=== PATIENT | male | born 1945 | race Caucasian/White ===

== ENCOUNTER 2017-01-07 18:19 | Inpatient (IN) | payer OTHER ==
[~2017-01-07] VITALS: Ht 172.7 cm; Wt 75.7 kg
[2017-01-07 18:29] VITALS: BP 163/80
[2017-01-07 19:02] LABS: HEMOGLOBIN 14.1 g/dL (12.0-18.0); MEAN CORPUSCULAR HEMOGLOBIN 28 pg (27-31); MEAN CORPUSCULAR HGB CONC 33 g/dL (33-37); MEAN CORPUSCULAR VOLUME 87 fL (80-94); PLATELET COUNT (AUTO) 130 K/uL (140-450); RED BLOOD CELL COUNT(AUTO) 4.96 MIL/uL (4.20-6.10); RED CELL DISTRIBUTION WIDTH 13.2 % (11.6-13.7); WHITE BLOOD COUNT (AUTO) 13.6 K/uL (4.8-10.8)
[2017-01-07 19:16] LABS: ANION GAP 13.1 (8-16); CARBON DIOXIDE 24.2 mmol/L (21-32); CHLORIDE 104 mmol/L (98-107); GLUCOSE 138 mg/dL (74-106); POTASSIUM 3.3 mmol/L (3.5-5.1); SODIUM SERUM 138 mmol/L (136-145); UREA NITROGEN, BLOOD 20 mg/dL (7-18)
--- NOTE | 2017-01-07 19:17 | NUR ---
CRUZ CATHETER PLACED, MAINTAINED ASEPTIC TECHNIQUE---PT TOLERATED WELL WITHOUT INCRESE OF DISCOMFORT---PT STATED RELIEF OF PAIN IMMEDIATELY AFTER CRUZ INSERT
--- NOTE | 2017-01-07 19:18 | NUR ---
71 Y/O M W/C/O LUMP TO TO OF R TESTICLE X 3 MTHS, AND PT URINARY RETECTION X TODAY. CRUZ CATH PLCED BY SUDARSHAN RN PER ER MD VERBAL ORDER. HEMATURIA NOTED, 500 ML URINE OUT, BRIGH RED. PT STATES HIS PAIN DISPARIED AFTER URINE WAS RELEASED. DENIES ANY PAIN PRESENT AT THE MOMENT, OR FEVER, OR CHILLS. ER MD MADE AWARE.
[2017-01-07 19:21] LABS: ALANINE AMINOTRANSFERASE 22 U/L (16-63); ALKALINE PHOSPHATASE 85 U/L (46-116); ASPARTATE AMINOTRANSFERASE 24 U/L (15-37); LIPASE 67 U/L (73-393); TOTAL BILIRUBIN 0.6 mg/dL (0.0-1.0); TOTAL PROTEIN, SERUM 7.9 g/dL (6.4-8.2)
[2017-01-07 19:29] LABS: BAND % (MANUAL) 21 % (0-8); NEUTROPHILS % (MANUAL) 76 (43-65)
[2017-01-07 19:30] LABS: LYMPHOCYTES % (MANUAL) 2 % (20-46); MONOCYTES % (MANUAL) 1 % (5-12); PLATELET ESTIMATE DECREASED
--- NOTE | 2017-01-07 20:20 | NUR ---
PT RESTING IN BED, ON OUTSIDE SALES ACCOUNT EXECUTIVE, VSS. NO S/S OF DISTRESS NOTED AT THE MOMENT.
[2017-01-07] MEDS ORDERED: LEVOFLOXACIN 500 MG/D5W PREMIX 100 ML IV ONE (20:25)
[2017-01-07] MEDS ORDERED: NACL 0.9% 1,000 ML IV ONE (20:25)
[2017-01-07 20:30] LABS: APPEARANCE,URINE CLOUDY (CLEAR); BILIRUBIN,URINE NEGATIVE (NEGATIVE); BLOOD, URINE 3+ (NEGATIVE); COLOR,URINE RED (YELLOW); LEUKOCYTE ESTERASE ,URINE 2+ (NEGATIVE); NITRITE, URINE POSITIVE (NEGATIVE); PROTEIN,URINE 2+ (NEGATIVE); UGLUCOSE NEGATIVE (NEGATIVE); UROBILINOGEN,URINE 0.2 EU/dL (0.2 - 1)
[2017-01-07 20:33] LABS: RBC,URINE TOO NUMEROUS TO COUN /HPF (0-5)
[2017-01-07 20:34] LABS: BACTERIA,URINE 2+ /HPF (None Seen); SQUAMOUS EPITHELIAL CELL,UR 0-3 (FEW) /LPF (0-3 (FEW))
--- NOTE | 2017-01-07 20:36 | NUR ---
X-Ray at bedside.
[2017-01-07 21:03] LABS: LACTIC ACID 1.4 mmol/L (0.4-2.0)
--- NOTE | 2017-01-07 21:06 | NUR ---
Patient will be admitted to care of DR FUENTES. Admited to TELEMETRY. Will go to room 110 A. Belongings list completed. Report to LIT MCKINLEY.
[2017-01-07] MEDS ORDERED: NACL 0.9% 1,000 ML IV SCH (21:08)
[2017-01-07] MEDS ORDERED: MORPHINE SULFATE 2 MG/ML SYR IVP PRN (21:10)
[2017-01-07] MEDS ORDERED: ONDANSETRON 4 MG/2 ML VIAL IM/IVP PRN (21:10)
[2017-01-07] MEDS ORDERED: DOCUSATE SODIUM 100 MG GELCAP PO PRN (21:10)
[2017-01-07 21:41] LABS: INR 1.1 (0.8-1.2); PARTIAL THROMBOPLASTIN TIME 23.5 secs (22-35.6); PROTHROMBIN TIME 11.1 secs (10.8-13.4)
[2017-01-07 21:45] VITALS: BP 130/71
--- NOTE | 2017-01-07 21:45 | NUR ---
RECEIVED PT FROM ER VIA MELLISA PT MONEGASQUE SPEAKER AAOX4 AMBULATORY IV ON LEFT AC INFUSING WELL LEVAQUIN IVPB AND CRUZ CATH DRAINING ÁLVAREZ COLOR URINE ON FIELD PARTY MANAGER SR PT IS ORIENTED TO THE FLOOR CALL LIGHT WITHIN REACH
[2017-01-07 22:01] LABS: CHOL/HDL RATIO 3.4 (1-4.5); FREE T4 (FREE THYROXINE) 1.04 ng/dL (0.76-1.46); MAGNESIUM 1.7 mg/dL (1.8-2.4); THYROID STIMULATING HORMONE 1.28 uIU/mL (0.34-3.74)
[2017-01-08] VITALS: BP 117/60
--- NOTE | 2017-01-08 | NUR ---
PT RESTING ON BED DENIES ANY PAIN ON TELMETRY SR BBB CRUZ CATH DRAINING WELL DARK RASTA COLOR URINE IS GETTING CLEAR
[2017-01-08] MEDS: ACETAMINOPHEN 325 MG TAB PO PRN (00:40)
[2017-01-08] MEDS ORDERED: SODIUM PHOS / POTASSIUM PHOS 1 PKT PDR PO SCH (01:00)
[2017-01-08] MEDS ORDERED: POTASSIUM CHLORIDE 10 MEQ TABER PO SCH (02:00)
[2017-01-08] MEDS ORDERED: MAGNESIUM OXIDE 400 MG TAB PO SCH (02:00)
[2017-01-08] MEDS: TAMSULOSIN 0.4 MG CAP PO SCH (02:32)
--- NOTE | 2017-01-08 02:41 | NUR ---
MEDIC GIVEN ORDER,
[2017-01-08] MEDS: NACL 0.9% 1,000 ML IV SCH ×2 (02:45→20:09)
[2017-01-08 04:00] VITALS: BP 107/55
--- NOTE | 2017-01-08 04:39 | NUR ---
SPONGE BATH GIVEN , LINEN CHANGED CRUZ CATH DRAINING WELL URINE IS GETTING CLEAR YELLOW COLOR
--- NOTE | 2017-01-08 06:30 | NUR ---
PT REPOSITIONED Q2H IV ON LEFT AC INFUSING WELL DENIES ANY LPAIN OR DISCOMFORT CRUZ CATH DRAINING WELL RASTA COLOR URINE , ON TELEMETRY SB
--- NOTE | 2017-01-08 07:20 | NUR ---
RECEIVED PATIENT REPORT AT BEDSIDE FROM NIGHT NURSE. PATIENT IS AAOX4 AND SHOWS NO S/S OF DISTRESS ON ROOM AIR. IV NOTED ON THE L AC WITH IVF'S INFUSING WELL. SKIN IS INTACT. CRUZ CATHETER IN PLACE WITH LIGHT RASTA URINE. TELE MONITOR IN USE. PATIENT WAS EDUCATED ON USING THE CALL LIGHT FOR ASSISTANCE, RAPID RESPONSE, AND POC FOR TODAY. PATIENT VERBALIZED UNDERSTANDING. THE BED IS LOWERED WITH CALL LIGHT WITHIN REACH. WILL CONTINUE TO MONITOR.
[2017-01-08 07:22] LABS: HEMATOCRIT 36.3 % (36-52); HEMOGLOBIN 12.1 g/dL (12.0-18.0); MEAN CORPUSCULAR HEMOGLOBIN 29 pg (27-31); MEAN CORPUSCULAR HGB CONC 33 g/dL (33-37); MEAN CORPUSCULAR VOLUME 86 fL (80-94); PLATELET COUNT (AUTO) 119 K/uL (140-450); RED BLOOD CELL COUNT(AUTO) 4.21 MIL/uL (4.20-6.10); RED CELL DISTRIBUTION WIDTH 13.4 % (11.6-13.7); WHITE BLOOD COUNT (AUTO) 22.9 K/uL (4.8-10.8)
--- NOTE | 2017-01-08 07:50 | NUR ---
PATIENT BEING SEEN BY DR. GUTIERREZ. PATIENT VERBALIZED UNDERSTANDING FOR PLAN FOR TODAY.
[2017-01-08 07:58] VITALS: BP 112/61
[2017-01-08 08:12] LABS: ALANINE AMINOTRANSFERASE 15 U/L (16-63); ALBUMIN 2.8 g/dL (3.4-5.0); ALKALINE PHOSPHATASE 54 U/L (46-116); ANION GAP 8.5 (8-16); ASPARTATE AMINOTRANSFERASE 16 U/L (15-37); CALCIUM 7.8 mg/dL (8.5-10.1); CARBON DIOXIDE 26.9 mmol/L (21-32); CHLORIDE 108 mmol/L (98-107); CREATININE 0.8 mg/dL (0.7-1.3); GLUCOSE 91 mg/dL (74-106); POTASSIUM 4.4 mmol/L (3.5-5.1); SODIUM SERUM 139 mmol/L (136-145); TOTAL BILIRUBIN 0.6 mg/dL (0.0-1.0); TOTAL PROTEIN, SERUM 6.2 g/dL (6.4-8.2); UREA NITROGEN, BLOOD 15 mg/dL (7-18)
[2017-01-08 08:14] LABS: MAGNESIUM 1.8 mg/dL (1.8-2.4); PHOSPHORUS 3.1 mg/dL (2.5-4.9)
--- NOTE | 2017-01-08 08:20 | NUR ---
PATIENT SEEN BY DR SESAY. PATIENT STATED ONLY HAD A SMALL AMOUNT OF BM. DR ORDERED TO GIVE DOCUSATE 100 MG PO.
[2017-01-08 08:31] LABS: BAND % (MANUAL) 18 % (0-8); EOSINOPHILS % (MANUAL) 2 % (0-4); LYMPHOCYTES % (MANUAL) 12 % (20-46); MONOCYTES % (MANUAL) 5 % (5-12); NEUTROPHILS % (MANUAL) 63 (43-65)
--- NOTE | 2017-01-08 09:00 | NUR ---
PATIENT HAS BEEN SCREENED AND CATEGORIZED HIGH NUTRITION RISK. PATIENT WILL BE SEEN WITHIN 1-2 DAYS OF ADMISSION. 01/08/17-01/09/[address]
[2017-01-08] MEDS: LACTOBACILLUS RHAMNOSUS GG 1 EACH CAP PO SCH (09:11)
--- NOTE | 2017-01-08 09:11 | NUR ---
ADMINISTERED SCHEDULED MEDICATIONS AND PRN MEDICATION DOCUSATE 100 MG PO FOR CONSTIPATION. PATIENT TOLERATED WELL. ALSO CONSENT WAS OBTAINED FOR CT PELVIS WITH CONTRAST. PATIENT UNDERSTANDS PROS AND CONS FOR PROCEDURE EXPLAINED BY DR SESAY AND DR GUTIERREZ. ALL QUESTIONS WERE ANSWERED. PATIENT SIGNED CONSENT. PATIENT BED IS LOWERED WITH CALL LIGHT WITHIN REACH.
--- NOTE | 2017-01-08 11:00 | NUR ---
BLADDER SCAN SHOWED 47 ML OF URINE IN BLADDER. DR SESAY WAS NOTIFIED.
--- NOTE | 2017-01-08 11:07 | NUR ---
PATIENT IS AAOX4 AND SHOWS NO S/S OF DISTRESS ON ROOM AIR. PATIENT LEFT UNIT STABLE TO CT OF THE PELVIS WITH IV CONTRAST.
--- NOTE | 2017-01-08 11:30 | NUR ---
PATIENT IS BACK ON UNIT. IVF'S INFUSING WELL. ALL NEEDS MET. BED IS LOWERED WITH CALL LIGHT WITHIN REACH.
--- NOTE | 2017-01-08 11:35 | NUR ---
01/08/17 RD INITIAL ASSESSMENT COMPLETED PLEASE REFER TO NUTRITION ASSESSMENT UNDER CARE ACTIVITY FOR ESTIMATED NUTRITIONAL NEEDS. 1. CHANGE PO DIET TO - 75 G CONSISTENT CARBOHYDRATE DIET 2. RD TO FOLLOW-UP 3-5 DAYS; MODERATE RISK DIANA AGOSTO RD
[2017-01-08 12:00] VITALS: BP 131/63
--- NOTE | 2017-01-08 13:00 | NUR ---
PATIENT TOLERATED LUNCH WELL. PATIENT DENIES PAIN AND SOB. WILL CONTINUE TO MONITOR.
--- NOTE | 2017-01-08 14:40 | NUR ---
CRUZ CATHETER BAG URINE OUTPUT IS 800 CC LIGHT RASTA URINE. PATIENT THEN AMB TO THE RESTROOM WITH STEADY GAIT
--- NOTE | 2017-01-08 15:30 | NUR ---
PATIENT IS IN BED AND SHOWS NO S/S OF DISTRESS ON ROOM AIR.
[2017-01-08 15:46] VITALS: BP 130/75
[2017-01-08] MEDS: HYDROcodone/APAP 7.5/325 MG 1 TAB PO PRN (16:13)
--- NOTE | 2017-01-08 16:13 | NUR ---
PATIENT C/O 6/10 PAIN IN THE PERINEAL AREA STATES THE CRUZ CATHETER IS UNCOMFORTABLE. WILL ADMINISTER NORCO 7.5/325 MG PO PRN PAIN MEDICATION. WILL REASSESS IN ONE HOUR.
--- NOTE | 2017-01-08 17:13 | NUR ---
PATIENT IS SLEEPING AND SHOWS NO S/S OF DISTRESS ON ROOM AIR. WILL CONTINUE TO MONITOR.
--- NOTE | 2017-01-08 17:26 | NUR ---
RECEIVED CRITICAL LAB RESULT OF POSITIVE BLOOD CULTURE FOR GRAM POSITIVE COCCI IN PAIRS AND CHAINS. NOTIFIED DR MCGUIRE.
--- NOTE | 2017-01-08 19:20 | NUR ---
GAVE PATIENT REPORT TO NIGHT NURSE AT BEDSIDE. PATIENT IS AAOX4 AND SHOWS NO S/S OF DISTRESS ON ROOM AIR. PATIENT DENIES PAIN. PATIENT ENDORSED IN STABLE CONDITION.
--- NOTE | 2017-01-08 19:22 | NUR ---
RECEIVED PT AWAKE, DANISH SPEAKING, DENIES ANY PAIN, VITAL SIGNS STABLE, IVF INFUSING WELL, CRUZ CATH IN PLACE WITH CLOUDY YELLOW URINE, DRAINING WELL, PLAN OF CARE DISCUSSED, ON SAFETY MEASURES, SCD'S IN PLACE, CALL LIGHT WITHIN REACH.
[2017-01-08 20:00] VITALS: BP 131/57
[2017-01-08] MEDS: LEVOFLOXACIN 500 MG/D5W PREMIX 100 ML IV SCH (20:08)
--- NOTE | 2017-01-08 20:30 | NUR ---
DUE IV ANTIBIOTIC ADMINISTERED, SNACK PROVIDED, TOLERATED WELL, ALL NEEDS ATTENDED.
[2017-01-09] VITALS (8 sets, daily range): BP systolic 104–192; BP diastolic 51–93
--- NOTE | 2017-01-09 | NUR ---
PT SLEEPING, EASILY AROUSABLE, VITAL SIGNS STABLE, SB-SR ON TELE, ASYMPTOMATIC, DENIES ANY PAIN, NO SOB NOTED, IVF INFUSING WELL, CRUZ CATHETER DRAINING WELL, CONTINUE TO MONITOR CLOSELY.
--- NOTE | 2017-01-09 04:00 | NUR ---
PT SLEEPING, EASILY AROUSALE, VITAL SIGNS STABLE, SB ON TELE, ASYMPTOMATIC, DENIES ANY PAIN, NO SOB NOTED, MONITORED CLOSELY.
[2017-01-09] MEDS: NACL 0.9% 1,000 ML IV SCH ×4 (04:50→20:14)
[2017-01-09] MEDS: HYDROcodone/APAP 7.5/325 MG 1 TAB PO PRN (05:26)
--- NOTE | 2017-01-09 05:30 | NUR ---
PT COMPLAINING OF INTERMITTENT PAIN, MEDICATED WITH NORCO, NEW IVF BAG STARTED, CRUZ CATHETER DRAINING WELL, NO HEMATURIA NOTED, MONITORED CLOSELY.
[2017-01-09 05:55] LABS: HEMATOCRIT 37.9 % (36-52); HEMOGLOBIN 12.3 g/dL (12.0-18.0); MEAN CORPUSCULAR HEMOGLOBIN 29 pg (27-31); MEAN CORPUSCULAR HGB CONC 33 g/dL (33-37); MEAN CORPUSCULAR VOLUME 88 fL (80-94); PLATELET COUNT (AUTO) 105 K/uL (140-450); RED BLOOD CELL COUNT(AUTO) 4.33 MIL/uL (4.20-6.10); RED CELL DISTRIBUTION WIDTH 13.3 % (11.6-13.7); WHITE BLOOD COUNT (AUTO) 16.7 K/uL (4.8-10.8)
[2017-01-09 06:22] LABS: ANION GAP 8.9 (8-16); CALCIUM 7.8 mg/dL (8.5-10.1); CARBON DIOXIDE 25.1 mmol/L (21-32); CHLORIDE 107 mmol/L (98-107); CREATININE 0.7 mg/dL (0.7-1.3); GLUCOSE 89 mg/dL (74-106); SODIUM SERUM 137 mmol/L (136-145); UREA NITROGEN, BLOOD 14 mg/dL (7-18)
--- NOTE | 2017-01-09 07:05 | NUR ---
PT AWAKE, NO SIGNS OF DISTRESS, REPORT GIVEN TO BETSY MURRIETA FOR CONTINUITY OF CARE.
--- NOTE | 2017-01-09 07:05 | NUR ---
RECEIVED PATIENT REPORT AT BEDSIDE FROM NIGHT NURSE. PATIENT IS AAOX4 AND SHOWS NO S/S OF DISTRESS ON ROOM AIR. IV NOTED ON THE L AC WITH IVF'S INFUSING WELL. SKIN IS INTACT. CRUZ CATHETER IN PLACE WITH CLOUDY LIGHT RASTA URINE. TELE MONITOR IN USE. PATIENT WAS EDUCATED ON USING THE CALL LIGHT FOR ASSISTANCE, RAPID RESPONSE, AND POC FOR TODAY. PATIENT VERBALIZED UNDERSTANDING. THE BED IS LOWERED WITH CALL LIGHT WITHIN REACH. WILL CONTINUE TO MONITOR.
[2017-01-09 07:09] LABS: BAND % (MANUAL) 11 % (0-8); LYMPHOCYTES % (MANUAL) 15 % (20-46); MONOCYTES % (MANUAL) 5 % (5-12); NEUTROPHILS % (MANUAL) 69 (43-65)
[2017-01-09] MEDS: LACTOBACILLUS RHAMNOSUS GG 1 EACH CAP PO SCH (08:29)
[2017-01-09] MEDS: TAMSULOSIN 0.4 MG CAP PO SCH (08:29)
--- NOTE | 2017-01-09 08:29 | NUR ---
ADMINISTERED SCHEDULED MEDICATIONS. PATIENT TOLERATED WELL. PATIENT DENIES PAIN. THE BED IS LOWERED WITH CALL LIGHT WITHIN REACH.
[2017-01-09 08:36] LABS: HEMOGLOBIN A1C 5.8 % (4.8-5.6)
--- NOTE | 2017-01-09 10:30 | NUR ---
DR SESAY ORDERED TO DISCONTINUE CRUZ CATHETER.
--- NOTE | 2017-01-09 11:00 | NUR ---
DISCONTINUED CRUZ CATHETER WITH 1000 CC OF CLEAR YELLOW URINE. PATIENT TOLERATED ACTIVITY WELL. PATIENT GIVEN URINAL TO VOID IN TO COLLECT A URINE CULTURE.
--- NOTE | 2017-01-09 11:45 | NUR ---
PATIENT STATES HE TRIED TO URINATE TWICE AND WAS UNSUCCESSFUL. PATIENT STATES HAVING THE URGENCY TO VOID HOWEVER FEELS PRESSURE AND CANNOT VOID. DR SESAY NOTIFIED AND IS TO SEE PATIENT.
--- NOTE | 2017-01-09 11:50 | NUR ---
DR SESAY ALSO NOTIFIED OF PATIENT'S BLADDER SCAN OF 130 ML. WILL AWAIT ORDERS.
--- NOTE | 2017-01-09 12:00 | NUR ---
PATIENT BP OF 166/91 PATIENT STATES 10/10 PAIN IN THE GROIN AREA. PAGED DR SESAY.
--- NOTE | 2017-01-09 12:15 | NUR ---
DR MARTINEZ SEEING PATIENT AND NOTIFIED TO FOLLOW UP WITH HIM IN TWO WEEKS AN OUTPATIENT.
--- NOTE | 2017-01-09 12:30 | NUR ---
PATIENT BP WAS RECHECKED AT 192/93. PATIENT STATES 10/10 PAIN IN THE GROIN AREA. DR SESAY WAS NOTIFIED.
[2017-01-09] MEDS ORDERED: HYDROmorphone 1 MG/ML AMP IVP PRN (13:05)
--- NOTE | 2017-01-09 13:08 | NUR ---
RECEIVED NEW ORDERS TO GIVE DILAUDID 1 MG IVP FOR PAIN AND INSERT NEW CRUZ CATHETER.
--- NOTE | 2017-01-09 13:15 | NUR ---
PATIENT CRUZ IS INSERTED. PATIENT TOLERATED ACTIVITY WELL. URINE CULTURE WAS COLLECTED FROM THE CRUZ CATHETER PORT AND SENT TO LAB. HEMATURIA NOTED IN THE CRUZ CATHETER BAG WITH CLOTS. THE BED IS LOWERED WITH CALL LIGHT WITHIN REACH. WILL CONTINUE TO MONITOR.
--- NOTE | 2017-01-09 13:30 | NUR ---
URINE CX WAS SENT TO LAB.
--- NOTE | 2017-01-09 13:50 | NUR ---
BP WAS REASSESSED AT 137/81 PATIENT DENIES PAIN AND SHOWS NO S/S OF DISTRESS ON ROOM AIR. THE BED IS LOWERED WITH CALL LIGHT WITHIN REACH. PATIENT IS EATING IN BED AND TOLERATING DIET WELL.
[2017-01-09] MEDS ORDERED: FINASTERIDE 5 MG TAB PO SCH (14:03)
--- NOTE | 2017-01-09 16:00 | NUR ---
PATIENT SHOWS NO S/S OF DISTRESS ON ROOM AIR AND DENIES PAIN.
--- NOTE | 2017-01-09 18:00 | NUR ---
PATIENT IN BED AND DENIES PAIN AND SHOWS NO S/S OF DISTRESS ON ROOM AIR. AAOX4 AND IVF'S INFUSING WELL. THE BED IS LOWERED WITH CALL LIGHT WITHIN REACH.
--- NOTE | 2017-01-09 19:20 | NUR ---
PATIENT IS IN BED AND STATES HE WOULD LIKE TYLENOL FOR PERINEAL PAIN. PATIENT IS AAOX4 AND SHOWS NO S/S OF DISTRESS ON ROOM AIR. PATIENT REPORT WAS GIVEN AT BEDSIDE. PATIENT ENDORSED IN STABLE CONDITION.
--- NOTE | 2017-01-09 19:21 | NUR ---
RECD. RESTING IN BED, AWAKE, A/OX4. RESPIRATION EVEN AND UNLABORED. IV OF NS AT 130 ML/HR INFUSING, LEFT AC G 20. F/C PATENT DRAINING CLOUDY LIGHT ORANGE URINE. ON BILATERAL LEG SEQUENTIALS. NO APPETITE TO EAT, DINNER MEAL TRAY STILL ON THE TABLE. AGREED TO CALL NURSE WHEN HE WILL EAT TO WARM THE FOOD. PLAN OF CARE FOR THE SHIFT DISCUSSED. VERBALIZED UNDERSTANDING. DENIES PAIN 0/10.
--- NOTE | 2017-01-09 20:00 | NUR ---
Patient's Plan of Care was discussed and reviewed with CHIEF MEDICAL PHYSICIST: SANA CHEN.
[2017-01-09] MEDS: ACETAMINOPHEN 325 MG TAB PO PRN (20:23)
[2017-01-09] MEDS: LEVOFLOXACIN 500 MG/D5W PREMIX 100 ML IV SCH (21:03)
[2017-01-10] VITALS: BP 113/64
[2017-01-10] MEDS: NACL 0.9% 1,000 ML IV SCH ×3 (00:29→11:38)
--- NOTE | 2017-01-10 03:00 | NUR ---
I RECEIVED A PT FROM SANA WONG PT AAOX4 RESTING ON BED SWEDISH SPEAKER, IV ON LEFT AC INFUSING WELL , CRUZ CATH DRAINING WELL RASTA COLOR PT DENIES ANY PAIN OR DISCOMFORT
--- NOTE | 2017-01-10 04:30 | NUR ---
SPONGE BATH GIVEN , LINEN CHANGED, REPOSITIONED Q2H NOT DISTRESS NOTED
[2017-01-10] MEDS: ACETAMINOPHEN 325 MG TAB PO PRN ×2 (06:27→16:52)
[2017-01-10 06:52] LABS: HEMATOCRIT 37.8 % (36-52); HEMOGLOBIN 12.6 g/dL (12.0-18.0); MEAN CORPUSCULAR HEMOGLOBIN 29 pg (27-31); MEAN CORPUSCULAR HGB CONC 34 g/dL (33-37); MEAN CORPUSCULAR VOLUME 86 fL (80-94); PLATELET COUNT (AUTO) 93 K/uL (140-450); RED BLOOD CELL COUNT(AUTO) 4.39 MIL/uL (4.20-6.10); RED CELL DISTRIBUTION WIDTH 13.1 % (11.6-13.7); WHITE BLOOD COUNT (AUTO) 11.4 K/uL (4.8-10.8)
--- NOTE | 2017-01-10 07:20 | NUR ---
PT IS ENDORSED TO CHRISTY MURRIETA FOR CONTINUITY OF CARE
--- NOTE | 2017-01-10 07:22 | NUR ---
BEDSIDE MORNING REPORT RECEIVED FROM NIGHT NURSE, CALL LIGHT WITHIN REACH, WILL MONITOR PATIENT, SAFETY MEASURES ENSURED.
[2017-01-10 07:27] LABS: ANION GAP 14.4 (8-16); CALCIUM 7.7 mg/dL (8.5-10.1); CHLORIDE 102 mmol/L (98-107); CREATININE 0.8 mg/dL (0.7-1.3); GLUCOSE 112 mg/dL (74-106); POTASSIUM 3.4 mmol/L (3.5-5.1); SODIUM SERUM 136 mmol/L (136-145); UREA NITROGEN, BLOOD 11 mg/dL (7-18)
[2017-01-10 07:38] LABS: NEUTROPHILS % (MANUAL) 85 (43-65)
[2017-01-10 08:00] VITALS: BP 115/68
[2017-01-10] MEDS: LACTOBACILLUS RHAMNOSUS GG 1 EACH CAP PO SCH (08:03)
[2017-01-10] MEDS: TAMSULOSIN 0.4 MG CAP PO SCH (08:03)
--- NOTE | 2017-01-10 08:08 | NUR ---
MORNING MEDS GIVEN, WITH TEACHING, NO COMPLAINTS OF PAIN, WILL MONITOR, SAFETY MEASURES ENSURED.
[2017-01-10] MEDS ORDERED: FINASTERIDE 5 MG TAB PO SCH ×2 (09:00)
[2017-01-10] MEDS ORDERED: ACET-1182 PO (12:09)
[2017-01-10] MEDS ORDERED: TAMS0.4C96 PO (12:09)
[2017-01-10] MEDS ORDERED: CIPR500T4 PO (12:09)
[2017-01-10] MEDS ORDERED: FINA5TAB5 PO (12:09)
--- NOTE | 2017-01-10 12:26 | NUR ---
PT RESTING IN BED. NO S/S OF ACUTE DISTRESS. PT DENIES PAIN. CALL LIGHT WITHIN REACH. SAFETY MEASURES ENSURED. WILL CONTINUE TO MONITOR.
--- NOTE | 2017-01-10 12:54 | NUR ---
Social Service Note: I met with patient at bedside. Patient Turkish speaking. I verified his home address listed on face sheet and phone number. [place] [facility] [place] verbalized understanding. I faxed referral to [facility], fax number , phone number , social work case manager Chanda guzman.
[2017-01-10 16:00] VITALS: BP 117/63
[2017-01-10] MEDS ORDERED: POTASSIUM CHLORIDE 10 MEQ TABER PO SCH (16:05)
--- NOTE | 2017-01-10 17:11 | NUR ---
BLADDER SCAN SHOWED 0 ML. PT CLEARED FOR DISCHARGE. DISCHARGE INSTRUCTIONS PROVIDED. CRUZ CARE TEACHING PROVIDED. PT AND BROTHER BETI VERBALIZED UNDERSTANDING. IV TAKEN OUT. NO S/S OF ACUTE DISTRESS. PT DENIES PAIN.
--- NOTE | 2017-01-10 17:29 | NUR ---
PT TAKEN OFF UNIT.
== END 2017-01-10 17:29 | disposition home or self-care (01) | DRG 871 ==
LOC: MED 18:19 → EDBD 21:13 → MTU 21:13
PROVIDERS: ADMIT Family Medicine; ATTEND Family Medicine
DX: A41.9 Sepsis, unspecified organism (principal); N17.0 Acute kidney failure with tubular necrosis; N41.9 Inflammatory disease of prostate, unspecified; K40.90 Unilateral inguinal hernia, without obstruction or gangrene, not specified as recurrent; E83.39 Other disorders of phosphorus metabolism; E83.42 Hypomagnesemia; E87.6 Hypokalemia; R33.9 Retention of urine, unspecified; N30.90 Cystitis, unspecified without hematuria; N21.0 Calculus in bladder; E11.9 Type 2 diabetes mellitus without complications
CPT/HCPCS: 36415; 71010; 72193; 76770; 76870; 80048; 80053; 81001; 82150; 83036; 83605; 83690; 83735; 83880; 84100; 84436; 84439; 84443; 84479; 85025; 85610; 85730; 87040; 87081; 87086; 93005; 96365; 99285; J1170; J1956; J7030; Q0092; Q9967

== ENCOUNTER 2020-06-19 11:33 | Emergency (ER) | payer MEDICAID, SELFPAY ==
[~2020-06-19] VITALS: Ht 170.2 cm; Wt 63.0 kg
[~2020-06-19 11:33] MED LIST: ATOR20TA40 PO; CARV3.122 PO; FINA5TAB5 PO; HYDR-5122 PO; LACT10CA PO; LEVO750T51 PO; LISI-424 PO; TAMS0.4C96 PO
[2020-06-19 11:40] VITALS: BP 142/59
--- NOTE | 2020-06-19 11:44 | NUR ---
Pt sent to lobby to wait to be seen.
--- NOTE | 2020-06-19 12:00 | NUR ---
74 y/o male c/o worries for decreased urine in rincon bag. Pt states he had sx 06/05/20 for hernia removal. PMH: DM, HTN, BPH NKA
--- NOTE | 2020-06-19 13:08 | NUR ---
Fischer evaluating in triage.
--- NOTE | 2020-06-19 13:47 | NUR ---
Removed rincon per PA order. Replaced rincon, 200mL urine output. Pt tolerated procedure well.
[2020-06-19 13:59] VITALS: BP 142/59
--- NOTE | 2020-06-19 14:00 | NUR ---
Patient discharged with v/s stable. Written and verbal after care instructions given and explained. Patient verbalized understanding. Ambulatory with steady gait. All questions addressed prior to discharge. Advised to follow up with PMD.
== END 2020-06-19 14:00 | disposition home or self-care (01) ==
LOC: MED 11:33
DX: T83.098A Other mechanical complication of other urinary catheter, initial encounter (principal); Z79.899 Other long term (current) drug therapy
CPT/HCPCS: 51702; 99284